=== PATIENT | female | born 1995 | race Two or more races ===

== ENCOUNTER 2024-04-12 08:57 | Inpatient (IN) | payer OTHER ==
[~2024-04-12] VITALS: Ht 157.5 cm; Wt 68.0 kg
[~2024-04-12 08:57] MED LIST: CYMBALTA30 MG PO; CYMBALTA60 MG PO
[2024-04-12] MEDS ORDERED: ONDANSETRON HCL 2 MG/ML VIAL IV STA (09:22)
[2024-04-12] MEDS ORDERED: ONDANSETRON HCL 2 MG/ML VIAL ONE (09:28)
[2024-04-12] MEDS ORDERED: MEPERIDINE HCL/PF 25 MG/ML VIAL IV ONE (09:30)
[2024-04-12] MEDS ORDERED: 0.9 % SODIUM CHLORIDE 1,000 ML IV SCH ×2 (09:30→22:00)
[2024-04-12] MEDS ORDERED: MORPHINE SULFATE 4 MG/ML CARTRIDGE IV ONE (09:30)
[2024-04-12] MEDS ORDERED: MORPHINE SULFATE 4 MG/ML CARTRIDGE IV STA ×2 (09:57→12:02)
[2024-04-12 10:16] LABS: HEMATOCRIT 41.7 % (36.0-45.00); HEMOGLOBIN 14.8 g/dL (12.0-15.00); MEAN CORPUSCULAR HEMOGLOBIN 31.2 pg (27.00-32.0); MEAN CORPUSCULAR HGB CONC 35.4 g/dl (32.0-36.0); PLATELET COUNT 290 K/uL (150-450); RED BLOOD COUNT 4.74 M/uL (4.00-6.00); RED CELL DISTRIBUTION WIDTH 13.2 % (11.5-14.5)
[2024-04-12 10:44] LABS: PH,URINE 6.5 (5.0-8.0); URINE APPEARANCE Cloudy; URINE BILIRRUBIN Negative (NEGATIVE); URINE BLOOD Trace; URINE COLOR Yellow; URINE GLUCOSE Negative (NEGATIVE); URINE KETONE 15 (NEGATIVE); URINE LEUKOCYTE Moderate; URINE NITRATE Negative; URINE PROTEIN Negative (NEGATIVE); URINE UROBILINOGEN 0.2 E.U./dl
[2024-04-12] MEDS ORDERED: CEFTRIAXONE SODIUM 1,000 MG VIAL IV ONE (10:45)
[2024-04-12 10:46] LABS: URINE BACTERIA 1310.8 uL (0.0-1933); URINE EPITHELIAL CELLS 66.6 uL (0.0-38.8); URINE RBC 13.8 uL (0.0-20.8); URINE WBC 287.4 uL (0.0-23.2)
[2024-04-12] MEDS ORDERED: CEFTRIAXONE SODIUM 1,000 MG VIAL ONE (10:47)
[2024-04-12 10:53] LABS: URINE CAST 0.14 uL (0.0-1.40)
[2024-04-12 11:43] LABS: ALBUMIN 3.8 gm/dL (3.4-5.0); BILIRUBIN TOTAL 1.01 mg/dL (0.3-1.2); CALCIUM 9.2 mg/dL (8.5-10.1); CREATININE SERUM 0.76 mg/dL (0.55-1.02); GFR 89.97; GLOBULINA 4.6 G/DL (2.4-3.5); POTASSIUM 3.74 mEq/L (3.5-5.1); TOTAL PROTEIN 8.4 gm/dL (6.4-8.2)
[2024-04-12] MEDS ORDERED: KETOROLAC TROMETHAMINE 60 MG VIAL IM ONE ×2 (17:00→17:52)
[2024-04-12] MEDS ORDERED: PIPERACILLIN/TAZOBACTAM SODIUM 3.375 GM VIAL IV ONE ×2 (17:00→17:52)
[2024-04-12] MEDS ORDERED: PHENAZOPYRIDINE HCL 100 MG TABLET PO SCH (17:00)
[2024-04-12] MEDS ORDERED: PHENAZOPYRIDINE HCL 100 MG TABLET PO ONE (17:51)
[2024-04-12 19:06] LABS: C-REACTIVE PROTEIN 3.52 MG/DL (0.00-0.29)
[2024-04-12] MEDS ORDERED: ACETAMINOPHEN 500 MG GEL..CAP PO PRN (22:15)
[2024-04-12] MEDS ORDERED: ONDANSETRON HCL 4 MG in 0.9 % SODIUM CHLORIDE 50 ML IV PRN (22:15)
[2024-04-12] MEDS ORDERED: MEPERIDINE HCL/PF 25 MG/ML VIAL IM PRN (22:15)
[2024-04-12] MEDS ORDERED: MEPERIDINE HCL/PF 25 MG/ML VIAL IM ONE (22:15)
[2024-04-13] MEDS ORDERED: PIPERACILLIN/TAZOBACTAM SODIUM 3.375 GM in DEXTROSE 5 % IN WATER 100 ML IV SCH
[2024-04-13 02:50] LABS: INR 1.05; PARTIAL THROMBOPLASTIN TIME 26.2 SECONDS (22.0-34.0); PROTHROMBIN TIME 11.4 SECONDS (9.0-11.5)
[2024-04-13 07:41] LABS: C-REACTIVE PROTEIN 4.1 MG/DL (0.00-0.29)
[2024-04-13 08:00] VITALS: BP 106/61
[2024-04-13] MEDS ORDERED: FAMOTIDINE/PF 20 MG in 0.9 % SODIUM CHLORIDE 8 ML IV PUSH SCH (09:00)
[2024-04-13] MEDS ORDERED: Duloxetine HCl 60 MG CAPSULE.DR PO SCH (09:00)
[2024-04-13] MEDS ORDERED: ENOXAPARIN SODIUM 40 MG/0.4 ML SYRINGE SUBCUTANEO SCH (09:00)
[2024-04-13] MEDS ORDERED: GABAPENTIN 300 MG CAPSULE PO SCH (09:00)
[2024-04-13] MEDS ORDERED: MORPHINE SULFATE 2 MG/ML CARTRIDGE IV PRN (11:30)
[2024-04-13 17:11] LABS: URINE APPEARANCE Clear; URINE BILIRRUBIN Small (NEGATIVE); URINE BLOOD Negative; URINE COLOR Orange; URINE GLUCOSE Negative (NEGATIVE); URINE LEUKOCYTE Small; URINE NITRATE Positive; URINE PROTEIN Trace (NEGATIVE)
[2024-04-13 17:12] LABS: URINE BACTERIA 7.3 uL (0.0-1933); URINE EPITHELIAL CELLS 11.8 uL (0.0-38.8); URINE RBC 3.9 uL (0.0-20.8)
[2024-04-13 17:14] LABS: URINE KETONE 40 (NEGATIVE)
[2024-04-13 17:15] LABS: URINE CAST 0.14 uL (0.0-1.40)
[2024-04-13 18:00] VITALS: BP 112/67
[2024-04-14 01:00] VITALS: BP 95/53
[2024-04-14 08:21] VITALS: BP 93/55
[2024-04-14 09:51] LABS: HEMATOCRIT 35.1 % (36.0-45.00); HEMOGLOBIN 11.9 g/dL (12.0-15.00); MEAN CELL VOLUME 90.1 fL (80.00-100.00); MEAN CORPUSCULAR HEMOGLOBIN 30.6 pg (27.00-32.0); PLATELET COUNT 236 K/uL (150-450); RED BLOOD COUNT 3.89 M/uL (4.00-6.00); RED CELL DISTRIBUTION WIDTH 13.4 % (11.5-14.5)
[2024-04-14 11:00] LABS: ALBUMIN 2.9 gm/dL (3.4-5.0); BILIRUBIN TOTAL 0.55 mg/dL (0.3-1.2); CALCIUM 8.3 mg/dL (8.5-10.1); CREATININE SERUM 0.57 mg/dL (0.55-1.02); GFR 125.4; GLOBULINA 3.4 G/DL (2.4-3.5); MAGNESIUM 1.8 mg/dL (1.8-2.4); PHOSPHOROUS 2.5 mg/dL (2.5-4.9); POTASSIUM 4.42 mEq/L (3.5-5.1); TOTAL PROTEIN 6.3 gm/dL (6.4-8.2)
[2024-04-14 11:06] LABS: C-REACTIVE PROTEIN 1.63 MG/DL (0.00-0.29)
[2024-04-14 13:00] VITALS: BP 100/58; O2SAT 99
[2024-04-14 17:48] VITALS: BP 105/63; O2SAT 100
[2024-04-15 02:51] VITALS: BP 109/57
[2024-04-15 09:25] VITALS: BP 102/61; O2SAT 100
[2024-04-15 09:48] LABS: CALCIUM 8.5 mg/dL (8.5-10.1); CREATININE SERUM 0.53 mg/dL (0.55-1.02); GFR 136.38; POTASSIUM 4.36 mEq/L (3.5-5.1)
[2024-04-15] MEDS ORDERED: DEXTROSE 5 % AND 0.9 % NACL 1,000 ML IV SCH (10:30)
[2024-04-15 17:48] VITALS: BP 119/69
[2024-04-15] MEDS ORDERED: POLYETHYLENE GLYCOL 3350 17 GM BLIST.PACK PO NR (19:00)
[2024-04-16 02:57] VITALS: BP 108/59
[2024-04-16 09:13] LABS: HEMATOCRIT 34.4 % (36.0-45.00); HEMOGLOBIN 12.1 g/dL (12.0-15.00); MEAN CELL VOLUME 88.2 fL (80.00-100.00); MEAN CORPUSCULAR HEMOGLOBIN 30.9 pg (27.00-32.0); MEAN CORPUSCULAR HGB CONC 35.1 g/dl (32.0-36.0); PLATELET COUNT 233 K/uL (150-450)
[2024-04-16] MEDS ORDERED: MORPHINE SULFATE 2 MG/ML CARTRIDGE IV PRN (09:45)
[2024-04-16 09:55] VITALS: BP 112/67; O2SAT 98
[2024-04-16] MEDS ORDERED: METHYLPREDNISOLONE SOD SUCC 40 MG VIAL ONE (12:44)
[2024-04-16] MEDS ORDERED: DIPHENHYDRAMINE HCL 50 MG/ML VIAL 1ML ONE (12:44)
[2024-04-16] MEDS ORDERED: DIPHENHYDRAMINE HCL 50 MG/ML VIAL 1ML IV NR (14:00)
[2024-04-16] MEDS ORDERED: METHYLPREDNISOLONE SOD SUCC 40 MG VIAL IV NR (14:00)
[2024-04-16 17:16] VITALS: BP 138/85
[2024-04-17 03:12] VITALS: BP 99/573
[2024-04-17 08:55] VITALS: BP 106/63
[2024-04-17] MEDS ORDERED: POLYETHYLENE GLYCOL 3350 17 GM BLIST.PACK PO SCH (09:00)
[2024-04-17] MEDS ORDERED: LACTULOSE 20 G/30 ML BLIST.PACK PO SCH (09:00)
[2024-04-17] MEDS ORDERED: MINERAL OIL 30 ML BLIST.PACK PO NR (09:15)
[2024-04-17] MEDS ORDERED: MAGNESIUM HYDROXIDE 30 ML BLIST.PACK PO NR (09:15)
[2024-04-17] MEDS ORDERED: NA PHOS,M-B/NA PHOS,DI-BA 1 BOTTLE ENEMA RECTAL STA (15:02)
[2024-04-17 17:56] VITALS: BP 115/65; O2SAT 100
[2024-04-17] MEDS ORDERED: MORPHINE SULFATE 4 MG/ML CARTRIDGE IV PRN (18:30)
[2024-04-18 03:48] VITALS: BP 110/58
[2024-04-18 05:35] LABS: HEMATOCRIT 34.9 % (36.0-45.00); MEAN CELL VOLUME 89.4 fL (80.00-100.00); MEAN CORPUSCULAR HEMOGLOBIN 30.8 pg (27.00-32.0); MEAN CORPUSCULAR HGB CONC 34.5 g/dl (32.0-36.0); PLATELET COUNT 261 K/uL (150-450)
[2024-04-18 05:54] LABS: ALBUMIN 2.8 gm/dL (3.4-5.0); BILIRUBIN TOTAL 0.83 mg/dL (0.3-1.2); CALCIUM 8.6 mg/dL (8.5-10.1); CREATININE SERUM 0.65 mg/dL (0.55-1.02); GFR 107.76; GLOBULINA 3.2 G/DL (2.4-3.5); POTASSIUM 4.32 mEq/L (3.5-5.1)
[2024-04-18 09:21] VITALS: BP 101/62
[2024-04-18] MEDS ORDERED: DEXTROSE 5 %-0.45 % SOD CHLORD 1,000 ML IV SCH (10:15)
[2024-04-18 18:38] LABS: T4 FREE 1.1 NG/ML (0.76-1.46); TSH 2.08 uIU/mL (0.358-3.74)
[2024-04-18 19:30] VITALS: BP 121/77; O2SAT 99
[2024-04-19 03:32] VITALS: BP 103/62
[2024-04-19 09:15] VITALS: BP 110/51; O2SAT 98
[2024-04-19 14:43] LABS: ALBUMIN 3.3 gm/dL (3.4-5.0); BILIRUBIN TOTAL 0.68 mg/dL (0.3-1.2); CALCIUM 9.1 mg/dL (8.5-10.1); CREATININE SERUM 0.58 mg/dL (0.55-1.02); GFR 122.91; POTASSIUM 3.37 mEq/L (3.5-5.1); TOTAL PROTEIN 7.3 gm/dL (6.4-8.2)
[2024-04-19 17:13] VITALS: BP 104/54
[2024-04-20 01:22] VITALS: BP 105/54
[2024-04-20 09:26] VITALS: BP 108/61; O2SAT 100
[2024-04-20] MEDS ORDERED: ACETAMINOPHEN 500 MG GEL..CAP PO PRN (09:30)
[2024-04-20 10:05] LABS: HEMATOCRIT 37.4 % (36.0-45.00); HEMOGLOBIN 12.8 g/dL (12.0-15.00); MEAN CELL VOLUME 88.4 fL (80.00-100.00); MEAN CORPUSCULAR HEMOGLOBIN 30.3 pg (27.00-32.0); MEAN CORPUSCULAR HGB CONC 34.3 g/dl (32.0-36.0); PLATELET COUNT 329 K/uL (150-450); RED BLOOD COUNT 4.23 M/uL (4.00-6.00); RED CELL DISTRIBUTION WIDTH 12.9 % (11.5-14.5)
[2024-04-20 10:34] LABS: INR 1.06; PARTIAL THROMBOPLASTIN TIME 26.2 SECONDS (22.0-34.0); PROTHROMBIN TIME 11.5 SECONDS (9.0-11.5)
[2024-04-20] MEDS ORDERED: MORPHINE SULFATE 2 MG/ML SYRINGE IV PRN (10:45)
[2024-04-20 10:52] LABS: ALBUMIN 3.5 gm/dL (3.4-5.0); BILIRUBIN TOTAL 0.71 mg/dL (0.3-1.2); CALCIUM 9.3 mg/dL (8.5-10.1); CREATININE SERUM 0.5 mg/dL (0.55-1.02); GFR 145.87; GLOBULINA 3.7 G/DL (2.4-3.5); POTASSIUM 3.56 mEq/L (3.5-5.1); TOTAL PROTEIN 7.2 gm/dL (6.4-8.2)
[2024-04-20 18:27] VITALS: BP 100/50
[2024-04-21 01:49] VITALS: BP 98/54
[2024-04-21 09:41] VITALS: BP 95/51
[2024-04-21] MEDS ORDERED: LIDOCAINE HCL 1%/EPINEPHRINE 20ML VIAL IJ ONE ×2 (14:44→15:00)
[2024-04-21] MEDS ORDERED: CEFTRIAXONE SODIUM 2,000 MG VIAL ONE (14:44)
[2024-04-21] MEDS ORDERED: METRONIDAZOLE/SODIUM CHLORIDE 500 MG/100 ML PIGGYBACK IV ONE ×2 (14:44→15:00)
[2024-04-21] MEDS ORDERED: CEFTRIAXONE SODIUM 2,000 MG VIAL IV ONE (15:00)
[2024-04-21] MEDS ORDERED: SUGAMMADEX SODIUM 200 MG/2 ML VIAL IV ONE ×2 (16:37→17:45)
[2024-04-21] MEDS ORDERED: ONDANSETRON HCL 2 MG/ML VIAL IV PRN (17:15)
[2024-04-21] MEDS ORDERED: MORPHINE SULFATE 4 MG/ML CARTRIDGE IV PRN (17:15)
[2024-04-21] MEDS ORDERED: OxyCODONE HCL 5 MG TABLET (ROXICODONE) PO PRN (17:15)
[2024-04-21] MEDS ORDERED: MORPHINE SULFATE 4 MG/ML VIAL IV ONE ×2 (17:35→18:05)
[2024-04-21] MEDS ORDERED: PIPERACILLIN/TAZOBACTAM SODIUM 3.375 GM in DEXTROSE 5 % IN WATER 100 ML IV SCH (18:00)
[2024-04-21] MEDS ORDERED: PIPERACILLIN/TAZOBACTAM SODIUM 3.375 GM VIAL IV ONE (18:57)
[2024-04-21] MEDS ORDERED: ACETAMINOPHEN 500 MG GEL..CAP PO SCH (20:00)
[2024-04-21] MEDS ORDERED: CELECOXIB 200 MG CAPSULE PO SCH (21:00)
[2024-04-21] MEDS ORDERED: SIMETHICONE 125 MG CAPSULE PO SCH (21:00)
[2024-04-21] MEDS ORDERED: FAMOTIDINE/PF 20 MG/2 ML VIAL IV PUSH SCH (21:00)
[2024-04-22] MEDS ORDERED: METOCLOPRAMIDE HCL 5 MG/ML VIAL IV SCH (01:00)
[2024-04-22 03:24] VITALS: BP 124/76
[2024-04-22 08:19] LABS: HEMATOCRIT 25.9 % (36.0-45.00); HEMOGLOBIN 9.2 g/dL (12.0-15.00); MEAN CELL VOLUME 87.8 fL (80.00-100.00); MEAN CORPUSCULAR HEMOGLOBIN 31.1 pg (27.00-32.0); MEAN CORPUSCULAR HGB CONC 35.3 g/dl (32.0-36.0); PLATELET COUNT 152 K/uL (150-450); RED BLOOD COUNT 2.95 M/uL (4.00-6.00); RED CELL DISTRIBUTION WIDTH 13.1 % (11.5-14.5)
[2024-04-22 08:33] LABS: CREATININE SERUM 0.36 mg/dL (0.55-1.02); GFR 213.11; PHOSPHOROUS 3.1 mg/dL (2.5-4.9); POTASSIUM 3.11 mEq/L (3.5-5.1)
[2024-04-22 08:38] LABS: CALCIUM 6.2 mg/dL (8.5-10.1); MAGNESIUM 1.1 mg/dL (1.8-2.4)
[2024-04-22] MEDS ORDERED: HYOSCYAMINE SULFATE 0.125 MG TAB.SUBL SL SCH (09:00)
[2024-04-22 09:02] VITALS: BP 93/45
[2024-04-22] MEDS ORDERED: DEXTROSE 5 % IN WATER 1,000 ML IV SCH (12:45)
[2024-04-22] MEDS ORDERED: MAGNESIUM SULFATE IN WATER 50 ML IV NR (13:00)
[2024-04-22] MEDS ORDERED: POTASSIUM BICARBONATE/CIT AC 25 MEQ TABLET.EFF PO SCH (13:00)
[2024-04-22] MEDS ORDERED: POLYETHYLENE GLYCOL 3350 17 GM BLIST.PACK PO SCH (17:00)
[2024-04-22] MEDS ORDERED: ENOXAPARIN SODIUM 40 MG/0.4 ML SYRINGE SUBCUTANEO SCH (17:00)
[2024-04-22 18:40] VITALS: BP 99/51
[2024-04-22 18:52] VITALS: BP 119/66
[2024-04-22] MEDS ORDERED: SIMETHICONE 125 MG CAPSULE PO SCH (21:34)
[2024-04-23 03:14] VITALS: BP 111/89; O2SAT 96
[2024-04-23] MEDS ORDERED: DEXTROSE 5%-WATER 100ML IV.SOLN ONE (05:03)
[2024-04-23 05:28] LABS: HEMATOCRIT 32.8 % (36.0-45.00); HEMOGLOBIN 11.4 g/dL (12.0-15.00); MEAN CELL VOLUME 88.4 fL (80.00-100.00); MEAN CORPUSCULAR HEMOGLOBIN 30.8 pg (27.00-32.0); MEAN CORPUSCULAR HGB CONC 34.9 g/dl (32.0-36.0); PLATELET COUNT 280 K/uL (150-450); RED BLOOD COUNT 3.72 M/uL (4.00-6.00)
[2024-04-23 05:50] LABS: CALCIUM 8.5 mg/dL (8.5-10.1); CREATININE SERUM 0.52 mg/dL (0.55-1.02); GFR 139.41; POTASSIUM 3.71 mEq/L (3.5-5.1)
[2024-04-23] MEDS ORDERED: ENOXAPARIN SODIUM 40 MG/0.4 ML SYRINGE SUBCUTANEO SCH (09:00)
[2024-04-23 09:25] VITALS: BP 91/48; O2SAT 97
== END 2024-04-23 15:54 | disposition home or self-care (01) | DRG 417 ==
LOC: ER 09:00 → MEDJ 22:06
PROVIDERS: Emergency Medicine; General Practice; Internal Medicine Infectious Disease; Student in an Organized Health Care Education/Training Program; Surgery; ADMIT Internal Medicine; ATTEND Internal Medicine
PROC: BW40ZZZ Ultrasonography of Abdomen (ICD-10-PCS; 2024-04-12)
PROC: BW21ZZZ Computerized Tomography (CT Scan) of Abdomen and Pelvis (ICD-10-PCS; 2024-04-12)
PROC: BW21YZZ Computerized Tomography (CT Scan) of Abdomen and Pelvis using Other Contrast (ICD-10-PCS; 2024-04-16)
PROC: CF1C1ZZ Planar Nuclear Medicine Imaging of Hepatobiliary System, All using Technetium 99m (Tc-99m) (ICD-10-PCS; 2024-04-17)
PROC: BF13YZZ Fluoroscopy of Gallbladder and Bile Ducts using Other Contrast (ICD-10-PCS; 2024-04-21)
PROC: 0FT44ZZ Resection of Gallbladder, Percutaneous Endoscopic Approach (ICD-10-PCS; principal; 2024-04-21 13:45)
DX: K81.1 Chronic cholecystitis (principal); K85.90 Acute pancreatitis without necrosis or infection, unspecified; N39.0 Urinary tract infection, site not specified; G89.29 Other chronic pain; G58.8 Other specified mononeuropathies

== ENCOUNTER 2024-06-06 08:18 | Inpatient (IN) | payer OTHER ==
[~2024-06-06] VITALS: Ht 157.5 cm; Wt 68.0 kg
[~2024-06-06 08:18] MED LIST changes: +METAXALONE800 MG PO
[2024-06-06] MEDS ORDERED: MORPHINE SULFATE 2 MG/ML SYRINGE IV ONE (09:45)
[2024-06-06] MEDS ORDERED: FAMOtidine 10 MG/ML (4ML VIAL) IV ONE (09:45)
[2024-06-06] MEDS ORDERED: ONDANSETRON HCL 2 MG/ML VIAL IV ONE (09:45)
[2024-06-06] MEDS ORDERED: ONDANSETRON HCL 2 MG/ML VIAL ONE ×2 (10:07)
[2024-06-06] MEDS ORDERED: FAMOTIDINE/PF 20 MG/2 ML VIAL ONE ×2 (10:07→21:50)
[2024-06-06 10:39] LABS: HEMATOCRIT 39.1 % (36.0-45.00); HEMOGLOBIN 13.4 g/dL (12.0-15.00); MEAN CELL VOLUME 92.3 fL (80.00-100.00); MEAN CORPUSCULAR HEMOGLOBIN 31.6 pg (27.00-32.0); MEAN CORPUSCULAR HGB CONC 34.2 g/dl (32.0-36.0); PLATELET COUNT 283 K/uL (150-450); RED BLOOD COUNT 4.24 M/uL (4.00-6.00)
[2024-06-06 11:12] LABS: PROTHROMBIN TIME 10.9 SECONDS (9.0-11.5)
[2024-06-06 11:20] LABS: ALBUMIN 3.9 gm/dL (3.4-5.0); ALKALINE PHOSPHATASE 159 U/L (50-136); ALT/SGPT 160 U/L (12-78); AMYLASE 44 U/L (25-115); ANION GAP 11 (10.0-20.0); AST/SGOT 327 U/L (15-37); BILIRUBIN TOTAL 0.87 mg/dL (0.3-1.2); BLOOD UREA NITROGEN 10 mg/dL (7-18); BUN CREA RATIO 16 (7.0-25.0); CALCIUM 9.2 mg/dL (8.5-10.1); CARBON DIOXIDE 24 mEq/L (21-32); CHLORIDE 108 mmol/L (98-107); CREATININE SERUM 0.62 mg/dL (0.55-1.02); GLUCOSE FASTING 87 mg/dL (65-100); LIPASE 17 U/L (13-75); OSMOLALITY SERUM 276 MOSM/KG (275-295); POTASSIUM 4.33 mEq/L (3.5-5.1); SODIUM 139 mmol/L (136-145); TOTAL PROTEIN 7.9 gm/dL (6.4-8.2)
[2024-06-06 11:44] LABS: HCG QUANTITATIVE < 1 mUI/mL (1-3)
[2024-06-06] MEDS ORDERED: MORPHINE SULFATE 4 MG/ML VIAL IV ONE (14:00)
[2024-06-06] MEDS ORDERED: TRAMADOL HCL E100 M1 PO (14:42)
[2024-06-06] MEDS ORDERED: MORPHINE SULFATE 2 MG/ML SYRINGE IV SCH (14:54)
[2024-06-06] MEDS ORDERED: METRONIDAZOLE/SODIUM CHLORIDE 100 ML IV SCH (19:40)
[2024-06-06] MEDS ORDERED: DIPHENHYDRAMINE HCL 50 MG/ML VIAL 1ML IV ONE (19:45)
[2024-06-06] MEDS ORDERED: METHYLPREDNISOLONE SOD SUCC 125 MG VIAL IV ONE (19:45)
[2024-06-06] MEDS ORDERED: 0.9 % SODIUM CHLORIDE 1,000 ML IV SCH (19:45)
[2024-06-06] MEDS ORDERED: METHYLPREDNISOLONE SOD SUCC 125 MG VIAL ONE (20:29)
[2024-06-06] MEDS ORDERED: DIPHENHYDRAMINE HCL 50 MG/ML VIAL 1ML ONE (20:29)
[2024-06-06] MEDS ORDERED: CIPROFLOXACIN IN 5 % DEXTROSE 200 ML IV SCH (21:00)
[2024-06-06] MEDS ORDERED: DICYCLOMINE HCL 20 MG TABLET PO SCH (21:00)
[2024-06-06] MEDS ORDERED: FAMOTIDINE/PF 20 MG in 0.9 % SODIUM CHLORIDE 8 ML IV PUSH SCH (21:00)
[2024-06-06] MEDS ORDERED: CIPROFLOXACIN IN 5 % DEXTROSE 400 MG/200 ML PIGGYBAG IV ONE (21:50)
[2024-06-06] MEDS ORDERED: METRONIDAZOLE/SODIUM CHLORIDE 500 MG/100 ML PIGGYBACK IV ONE (21:50)
[2024-06-06] MEDS ORDERED: DICYCLOMINE HCL 10 MG CAPSULE PO ONE (21:50)
[2024-06-06 22:23] LABS: ALBUMIN 3.2 gm/dL (3.4-5.0); CHOL HDL RATIO 2.7 (0-5.0)
[2024-06-06 22:42] VITALS: BP 100/55
[2024-06-06 23:01] LABS: PH,URINE 5.5 (5.0-8.0); URINE APPEARANCE Clear; URINE BILIRRUBIN Negative (NEGATIVE); URINE BLOOD Negative; URINE COLOR Yellow; URINE GLUCOSE Negative (NEGATIVE); URINE KETONE Negative (NEGATIVE); URINE LEUKOCYTE Trace; URINE NITRATE Negative; URINE PROTEIN Negative (NEGATIVE); URINE UROBILINOGEN 0.2 E.U./dl
[2024-06-06 23:05] LABS: URINE BACTERIA 518.9 uL (0.0-1933); URINE EPITHELIAL CELLS 6.9 uL (0.0-38.8); URINE RBC 3.9 uL (0.0-20.8); URINE WBC 43.8 uL (0.0-23.2)
[2024-06-07 00:24] VITALS: BP 91/53; O2SAT 98
[2024-06-07 05:30] VITALS: BP 102/50
[2024-06-07 08:19] VITALS: BP 105/64
[2024-06-07 18:13] VITALS: BP 92/60
[2024-06-08 01:57] VITALS: BP 112/69; O2SAT 98
[2024-06-08 07:06] LABS: HEPATITIS A IGM Negative (Negative); HEPATITIS B CORE IGG Negative (Negative); HEPATITIS B CORE IGM Negative (Negative); HEPATITIS C VIRUS ANTIBODY Non Reactive (Non Reactive)
[2024-06-08 09:04] VITALS: BP 95/57; O2SAT 99
[2024-06-08] MEDS ORDERED: MINERAL OIL 30 ML BLIST.PACK PO STA (10:18)
[2024-06-08] MEDS ORDERED: LACTULOSE 20 G/30 ML BLIST.PACK PO STA (10:19)
[2024-06-08] MEDS ORDERED: MAGNESIUM HYDROXIDE 30 ML BLIST.PACK PO STA (10:19)
[2024-06-08] MEDS ORDERED: POLYETHYLENE GLYCOL 3350 17 GM BLIST.PACK PO NR ×2 (11:00→17:00)
[2024-06-08 16:26] VITALS: BP 101/62; O2SAT 98
[2024-06-08] MEDS ORDERED: SENNA/DOCUSATE SODIUM 1 TAB TABLET PO SCH (17:00)
[2024-06-09] MEDS ORDERED: MORPHINE SULFATE 2 MG/ML SYRINGE IV PRN
[2024-06-09 02:23] VITALS: BP 84/50; O2SAT 99
[2024-06-09 07:57] VITALS: BP 86/50
[2024-06-09] MEDS ORDERED: POLYETHYLENE GLYCOL 3350 17 GM BLIST.PACK PO SCH (09:00)
[2024-06-09] MEDS ORDERED: ENOXAPARIN SODIUM 40 MG/0.4 ML SYRINGE SUBCUTANEO SCH (09:00)
[2024-06-09 10:52] LABS: ALBUMIN 3.1 gm/dL (3.4-5.0); BILIRUBIN TOTAL 0.51 mg/dL (0.3-1.2); CALCIUM 8.7 mg/dL (8.5-10.1); CREATININE SERUM 0.54 mg/dL (0.55-1.02); GFR 133.47; GLOBULINA 3.2 G/DL (2.4-3.5); POTASSIUM 3.91 mEq/L (3.5-5.1); TOTAL PROTEIN 6.3 gm/dL (6.4-8.2)
[2024-06-09] MEDS ORDERED: NA PHOS,M-B/NA PHOS,DI-BA 1 BOTTLE ENEMA RECTAL NR (13:30)
[2024-06-09 16:35] VITALS: BP 93/46; O2SAT 21
[2024-06-10 02:08] VITALS: BP 91/52; O2SAT 97
[2024-06-10 08:47] VITALS: BP 108/75; O2SAT 100
[2024-06-10] MEDS ORDERED: MIDAZOLAM HCL 2 MG/2 ML VIAL IV PUSH ONE (16:45)
[2024-06-10] MEDS ORDERED: fentaNYL CITRATE 50 MCG/ML AMPUL IV PUSH ONE (16:45)
[2024-06-10 17:28] VITALS: BP 111/70; O2SAT 100
[2024-06-10] MEDS ORDERED: FAMOtidine 20 MG TABLET PO SCH (21:00)
[2024-06-10 21:58] VITALS: BP 95/65; O2SAT 100
[2024-06-11 01:09] VITALS: BP 95/57; O2SAT 96
[2024-06-11 08:27] VITALS: BP 94/54; O2SAT 99
[2024-06-11 15:06] LABS: INFLUENZA A AG NEGATIVE (NEGATIVE)
[2024-06-11 15:13] LABS: COVID-19 AG NEGATIVE (NEGATIVE)
[2024-06-11 17:37] VITALS: BP 90/53; O2SAT 100
[2024-06-11 17:48] LABS: ALBUMIN 3.6 gm/dL (3.4-5.0); GLOBULINA 3.5 G/DL (2.4-3.5); TOTAL PROTEIN 7.1 gm/dL (6.4-8.2)
[2024-06-12 02:02] VITALS: BP 78/45; O2SAT 98
[2024-06-12 03:04] VITALS: BP 80/50
[2024-06-12 09:47] VITALS: BP 82/44; O2SAT 97
[2024-06-12 14:26] LABS: HEMATOCRIT 36.3 % (36.0-45.00); HEMOGLOBIN 12.6 g/dL (12.0-15.00); MEAN CELL VOLUME 90.8 fL (80.00-100.00); MEAN CORPUSCULAR HEMOGLOBIN 31.7 pg (27.00-32.0); MEAN CORPUSCULAR HGB CONC 34.8 g/dl (32.0-36.0); PLATELET COUNT 245 K/uL (150-450); RED BLOOD COUNT 3.99 M/uL (4.00-6.00)
[2024-06-12 14:54] LABS: ALBUMIN 3.2 gm/dL (3.4-5.0); BILIRUBIN TOTAL 0.36 mg/dL (0.3-1.2); CALCIUM 8.7 mg/dL (8.5-10.1); CREATININE SERUM 0.68 mg/dL (0.55-1.02); GFR 102.29; GLOBULINA 3.3 G/DL (2.4-3.5); POTASSIUM 3.68 mEq/L (3.5-5.1); TOTAL PROTEIN 6.5 gm/dL (6.4-8.2)
[2024-06-12] MEDS ORDERED: KETOROLAC TROMETHAMINE 30 MG VIAL IV SCH (17:00)
[2024-06-12 17:42] VITALS: BP 96/55; O2SAT 100
[2024-06-13 03:42] VITALS: BP 80/46; O2SAT 97
[2024-06-13 09:06] VITALS: BP 108/66; O2SAT 97
[2024-06-13 17:45] VITALS: BP 103/75; O2SAT 98
[2024-06-14 03:35] VITALS: BP 87/45; O2SAT 96
[2024-06-14 10:04] VITALS: BP 96/57; O2SAT 100
== END 2024-06-14 14:59 | disposition home or self-care (01) | DRG 358 ==
LOC: ER 08:19 → MEDJ 20:15
PROVIDERS: General Practice; Internal Medicine; ADMIT Student in an Organized Health Care Education/Training Program; ATTEND Student in an Organized Health Care Education/Training Program
PROC: BW21YZZ Computerized Tomography (CT Scan) of Abdomen and Pelvis using Other Contrast (ICD-10-PCS; 2024-06-06)
PROC: BW40ZZZ Ultrasonography of Abdomen (ICD-10-PCS; 2024-06-06)
PROC: CD271ZZ Tomographic (Tomo) Nuclear Medicine Imaging of Gastrointestinal Tract using Technetium 99m (Tc-99m) (ICD-10-PCS; 2024-06-07)
PROC: BW40ZZZ Ultrasonography of Abdomen (ICD-10-PCS; 2024-06-09)
PROC: BU4CZZZ Ultrasonography of Uterus and Ovaries (ICD-10-PCS; 2024-06-09)
PROC: 0W9F3ZX Drainage of Abdominal Wall, Percutaneous Approach, Diagnostic (ICD-10-PCS; principal; 2024-06-10)
DX: K59.09 Other constipation (principal); L72.8 Other follicular cysts of the skin and subcutaneous tissue; N83.291 Other ovarian cyst, right side; K57.30 Diverticulosis of large intestine without perforation or abscess without bleeding; R74.01 Elevation of levels of liver transaminase levels; R10.31 Right lower quadrant pain

== ENCOUNTER 2024-08-23 07:00 | Day surgery (SDC) | payer OTHER ==
[~2024-08-23 07:00] MED LIST changes: +TRAMADOL HCL E100 M1 PO
[2024-08-23] MEDS ORDERED: FLUMAZENIL 0.5 MG/5 ML ML IV STA (08:08)
[2024-08-23] MEDS ORDERED: NALOXONE HCL 0.4 MG/ML AMPUL IV STA (08:08)
[2024-08-23] MEDS ORDERED: fentaNYL CITRATE 50 MCG/ML AMPUL IV PUSH ONE (08:15)
[2024-08-23] MEDS ORDERED: MIDAZOLAM HCL 2 MG/2 ML VIAL IV ONE (08:15)
[2024-08-23] MEDS ORDERED: DIPHENHYDRAMINE HCL 50 MG/ML VIAL 1ML IV ONE (08:15)
== END 2024-08-23 09:05 | disposition home or self-care (01) ==
LOC: AMB-ENDOS 07:00
PROVIDERS: ATTEND Surgery
DX: K59.02 Outlet dysfunction constipation (principal); K58.9 Irritable bowel syndrome, unspecified; N80.34 Deep endometriosis of the pelvic sidewall; N80.312 Deep endometriosis of the anterior cul-de-sac; Z91.013 Allergy to seafood

== ENCOUNTER 2024-09-06 09:27 | Emergency (ER) | payer OTHER ==
[~2024-09-06] VITALS: Ht 157.5 cm; Wt 64.0 kg
[2024-09-06] MEDS ORDERED: METHYLPREDNISOLONE SOD SUCC 125 MG VIAL IV ONE (10:00)
[2024-09-06] MEDS ORDERED: KETOROLAC TROMETHAMINE 30 MG VIAL IV ONE ×2 (10:00→19:00)
[2024-09-06] MEDS ORDERED: DIPHENHYDRAMINE HCL 50 MG/ML VIAL 1ML IV ONE (10:00)
[2024-09-06] MEDS ORDERED: 0.9 % SODIUM CHLORIDE 1,000 ML IV ONE (10:00)
[2024-09-06] MEDS ORDERED: DESVENLAFAXINE50 M3 (10:21)
[2024-09-06] MEDS ORDERED: SPRINTEC 28 DA1 EAC1 (10:22)
[2024-09-06] MEDS ORDERED: METHYLPHENIDATE5 MG (10:22)
[2024-09-06] MEDS ORDERED: LISDEXAMFETAMIN50 MG (10:22)
[2024-09-06] MEDS ORDERED: RESTORIL15 MG (10:22)
[2024-09-06 11:07] LABS: URINE APPEARANCE Clear; URINE BILIRRUBIN Negative (NEGATIVE); URINE BLOOD Negative; URINE COLOR Yellow; URINE GLUCOSE Negative (NEGATIVE); URINE KETONE Negative (NEGATIVE); URINE LEUKOCYTE Moderate; URINE NITRATE Negative; URINE PROTEIN Negative (NEGATIVE); URINE UROBILINOGEN 0.2 E.U./dl
[2024-09-06 11:14] LABS: URINE BACTERIA 163.2 uL (0.0-1933); URINE EPITHELIAL CELLS 14.4 uL (0.0-38.8); URINE RBC 10.8 uL (0.0-20.8); URINE WBC 25.5 uL (0.0-23.2)
[2024-09-06 11:26] LABS: BASO % 0.6 % (0.1-1.2); EOS # 0.16 (0.04-0.54); EOS % 1.8 % (0.7-7.0); LYMPH # 1.80 (1.18-3.74); LYMPH % 20.2 % (19.3-53.1); MEAN PLATELET VOLUME 10.30 fl (9.4-12.4); MONO # 0.41 (0.24-0.82); MONO % 4.6 % (4.7-12.5); NEUT # 6.45 (1.56-6.13); NEUT % 72.5 % (34.0-71.1); RED CELL DISTRIBUTION WIDTH 12.5 % (11.6-14.4)
[2024-09-06 11:29] LABS: URINE CAST 0.00 uL (0.0-1.40)
[2024-09-06 12:49] LABS: INR 1.0
[2024-09-06 12:59] LABS: ALT/SGPT 105.0 U/L (12-78); AST/SGOT 173.0 U/L (15-37); BILIRUBIN TOTAL 0.72 mg/dL (0.3-1.2); BUN CREA RATIO 24.0 (7.0-25.0); CREATININE SERUM 0.62 mg/dL (0.55-1.02); GFR 113.8; GLOBULINA 3.4 G/DL (2.4-3.5); GLUCOSE FASTING 76.0 mg/dL (65-100); OSMOLALITY SERUM 275.0 MOSM/KG (275-295)
[2024-09-06] MEDS ORDERED: CEFTRIAXONE SODIUM 1,000 MG VIAL IV ONE (13:15)
[2024-09-06] MEDS ORDERED: MORPHINE SULFATE 4 MG/ML VIAL IV ONE (19:00)
[2024-09-06] MEDS ORDERED: ONDANSETRON HCL 2 MG/ML VIAL IV STA (20:06)
[2024-09-06] MEDS ORDERED: LACTULOSE 20 G/30 ML BLIST.PACK PO ONE (22:00)
[2024-09-06] MEDS ORDERED: MINERAL OIL 30 ML BLIST.PACK PO ONE (22:00)
[2024-09-06] MEDS ORDERED: MAGNESIUM HYDROXIDE 400 MG/5 ML ML PO ONE (22:00)
== END 2024-09-07 10:28 | disposition home or self-care (01) ==
LOC: ER 09:31
PROVIDERS: General Practice
DX: N83.291 Other ovarian cyst, right side (principal); N80.9 Endometriosis, unspecified; K59.00 Constipation, unspecified; Z91.013 Allergy to seafood

== ENCOUNTER 2024-09-29 10:53 | Inpatient (IN) | payer OTHER ==
[~2024-09-29] VITALS: Ht 157.5 cm; Wt 68.0 kg
[~2024-09-29 10:53] MED LIST changes: +DESVENLAFAXINE50 M3; +LISDEXAMFETAMIN50 MG; +METHYLPHENIDATE5 MG; +RESTORIL15 MG; +SPRINTEC 28 DA1 EAC1
[2024-09-29] MEDS ORDERED: PROAIR RESPICL90 MCG IH (14:52)
[2024-09-29] MEDS ORDERED: RESTORIL15 MG PO (14:52)
[2024-09-29] MEDS ORDERED: BUPROPION XL450 MG PO (14:53)
[2024-09-29] MEDS ORDERED: MAGNESIUM400 M1 PO (14:54)
[2024-10-06] MEDS ORDERED: CEFTRIAXONE SODIUM 2,000 MG VIAL ONE (12:28)
[2024-10-06] MEDS ORDERED: METRONIDAZOLE/SODIUM CHLORIDE 500 MG/100 ML PIGGYBACK IV ONE (12:29)
[2024-10-06] MEDS ORDERED: DIPHENHYDRAMINE HCL 50 MG/ML VIAL 1ML ONE ×2 (13:15→20:41)
[2024-10-06] MEDS ORDERED: BUPIVACAINE HCL/MPF 0.5% 30ML VIAL ONE (13:47)
[2024-10-06] MEDS ORDERED: LIDOCAINE HCL 1%/EPINEPHRINE 20ML VIAL IJ ONE (13:48)
[2024-10-06] MEDS ORDERED: HEPARIN SODIUM,PORCINE/PF 100 UNIT/ML SYRINGE IV ONE (14:29)
[2024-10-06] MEDS ORDERED: HYOSCYAMINE SULFATE 0.125 MG TAB.SUBL SL SCH (19:17)
[2024-10-06] MEDS ORDERED: LACTULOSE 20 G/30 ML BLIST.PACK PO SCH (19:18)
[2024-10-06] MEDS ORDERED: GABAPENTIN 300 MG CAPSULE PO SCH (19:18)
[2024-10-06] MEDS ORDERED: MORPHINE SULFATE 4 MG/ML VIAL IV ONE ×2 (19:25→21:35)
[2024-10-06] MEDS ORDERED: OxyCODONE HCL 5 MG TABLET (ROXICODONE) PO PRN (19:30)
[2024-10-06] MEDS ORDERED: ONDANSETRON HCL 2 MG/ML VIAL IV PRN (19:30)
[2024-10-06] MEDS ORDERED: MORPHINE SULFATE 4 MG/ML CARTRIDGE IV PRN (19:30)
[2024-10-06] MEDS ORDERED: DEXTROSE 50 % IN WATER 0.5 G/ML VIAL IV PRN (19:30)
[2024-10-06] MEDS ORDERED: ALBUTEROL SULFATE 3 ML/2.5 MG AMPUL.NEB IH SCH (19:54)
[2024-10-06] MEDS ORDERED: ACETAMINOPHEN 500 MG GEL..CAP PO SCH (20:00)
[2024-10-06] MEDS ORDERED: KETOROLAC TROMETHAMINE 30 MG VIAL ONE (20:30)
[2024-10-06] MEDS ORDERED: KETOROLAC TROMETHAMINE 30 MG VIAL IV ONE (20:40)
[2024-10-06] MEDS ORDERED: DIPHENHYDRAMINE HCL 50 MG/ML VIAL 1ML IV ONE ×5 (20:50→21:15)
[2024-10-06] MEDS ORDERED: FAMOTIDINE/PF 20 MG/2 ML VIAL IV PUSH SCH (21:00)
[2024-10-06 22:23] LABS: BASO % 0.2 % (0.1-1.2); EOS # 0.00 (0.04-0.54); EOS % 0.0 % (0.7-7.0); LYMPH # 0.43 (1.18-3.74); LYMPH % 2.9 % (19.3-53.1); MEAN PLATELET VOLUME 10.30 fl (9.4-12.4); MONO # 0.50 (0.24-0.82); MONO % 3.3 % (4.7-12.5); NEUT # 14.01 (1.56-6.13); NEUT % 93.2 % (34.0-71.1); RED CELL DISTRIBUTION WIDTH 13.4 % (11.6-14.4)
[2024-10-06 22:46] LABS: BUN CREA RATIO 14.0 (7.0-25.0); CREATININE SERUM 0.59 mg/dL (0.55-1.02); GFR 120.5; GLUCOSE FASTING 97.0 mg/dL (65-100); OSMOLALITY SERUM 278.0 MOSM/KG (275-295)
[2024-10-07 01:14] VITALS: BP 100/63; O2SAT 100
[2024-10-07 08:52] VITALS: BP 88/53; O2SAT 96
[2024-10-07] MEDS ORDERED: KETOROLAC TROMETHAMINE 30 MG VIAL IV SCH (09:00)
[2024-10-07 16:20] VITALS: BP 104/68; O2SAT 97
[2024-10-07] MEDS ORDERED: ENOXAPARIN SODIUM 40 MG/0.4 ML SYRINGE SUBCUTANEO SCH (17:00)
[2024-10-08] MEDS ORDERED: DIPHENHYDRAMINE HCL 50 MG/ML VIAL 1ML IV ONE (00:15)
[2024-10-08 02:22] VITALS: BP 102/64; O2SAT 99
[2024-10-08 08:00] VITALS: BP 104/70; O2SAT 99
[2024-10-08] MEDS ORDERED: ENOXAPARIN SODIUM 40 MG/0.4 ML SYRINGE SUBCUTANEO SCH (09:00)
[2024-10-08] MEDS ORDERED: DIPHENHYDRAMINE HCL 25 MG in 0.9 % SODIUM CHLORIDE 25 ML IV PRN (09:15)
[2024-10-08] MEDS ORDERED: MORPHINE SULFATE 4 MG/ML CARTRIDGE IV PRN (10:15)
[2024-10-08] MEDS ORDERED: CLONAZEPAM 1 MG TABLET PO STA (13:23)
[2024-10-08] MEDS ORDERED: CLONAZEPAM 0.5 MG TABLET PO PRN (13:30)
[2024-10-08 15:40] VITALS: BP 94/60; O2SAT 98
[2024-10-08 16:10] LABS: BASO % 0.5 % (0.1-1.2); EOS # 0.42 (0.04-0.54); EOS % 5.0 % (0.7-7.0); LYMPH # 2.03 (1.18-3.74); LYMPH % 24.3 % (19.3-53.1); MEAN PLATELET VOLUME 10.50 fl (9.4-12.4); MONO # 0.53 (0.24-0.82); MONO % 6.3 % (4.7-12.5); NEUT # 5.33 (1.56-6.13); NEUT % 63.8 % (34.0-71.1); RED CELL DISTRIBUTION WIDTH 13.7 % (11.6-14.4)
[2024-10-08 16:50] LABS: BUN CREA RATIO 6.0 (7.0-25.0); CREATININE SERUM 0.62 mg/dL (0.55-1.02); GFR 113.8; GLUCOSE FASTING 77.0 mg/dL (65-100); OSMOLALITY SERUM 281.0 MOSM/KG (275-295)
[2024-10-08 17:00] VITALS: BP 92/59
[2024-10-08] MEDS ORDERED: MAGNESIUM SULFATE IN WATER 50 ML IV NR (18:00)
[2024-10-08 20:00] VITALS: BP 83/50; O2SAT 98
[2024-10-08] MEDS ORDERED: POTASSIUM PHOS,M-BASIC-D-BASIC 3 MM/ML VIAL IV ONE (20:00)
[2024-10-08] MEDS ORDERED: TAMSULOSIN HCL 0.4 MG CAP PO SCH (21:00)
[2024-10-09 00:47] VITALS: BP 94/61; O2SAT 97
[2024-10-09] MEDS ORDERED: DIPHENHYDRAMINE HCL/ZINC ACET 28.3 GM CREAM.GM. TOP SCH (05:00)
[2024-10-09 08:00] VITALS: BP 98/66; O2SAT 99
[2024-10-09] MEDS ORDERED: POLYETHYLENE GLYCOL 3350 17 GM BLIST.PACK PO STA (13:18)
[2024-10-09 16:00] VITALS: BP 102/70; O2SAT 98
[2024-10-09] MEDS ORDERED: DIPHENHYDRAMINE HCL 25 MG in 0.9 % SODIUM CHLORIDE 25 ML IV SCH (18:00)
[2024-10-09] MEDS ORDERED: POLYETHYLENE GLYCOL 3350 17 GM BLIST.PACK PO SCH (21:00)
[2024-10-09] MEDS ORDERED: DIPHENHYDRAMINE HCL 50 MG/ML VIAL 1ML IV ONE (23:30)
[2024-10-09] MEDS ORDERED: DIPHENHYDRAMINE HCL 50 MG/ML VIAL 1ML ONE (23:47)
[2024-10-10 01:13] VITALS: BP 101/70; O2SAT 98
[2024-10-10 08:00] VITALS: BP 107/71; O2SAT 99
[2024-10-10] MEDS ORDERED: PRAMOXINE HCL/CALAMINE 180 ML BOTTLE TOP SCH (09:54)
[2024-10-10] MEDS ORDERED: ALBUTEROL SULFATE 3 ML/2.5 MG AMPUL.NEB IH SCH (13:00)
[2024-10-10 16:00] VITALS: BP 107/71; O2SAT 97
[2024-10-11 00:02] VITALS: BP 97/55; O2SAT 98
[2024-10-11 06:56] LABS: BASO % 0.4 % (0.1-1.2); EOS # 0.48 (0.04-0.54); EOS % 9.2 % (0.7-7.0); LYMPH # 1.44 (1.18-3.74); LYMPH % 27.6 % (19.3-53.1); MEAN PLATELET VOLUME 10.00 fl (9.4-12.4); MONO # 0.35 (0.24-0.82); MONO % 6.7 % (4.7-12.5); NEUT # 2.91 (1.56-6.13); NEUT % 55.9 % (34.0-71.1); RED CELL DISTRIBUTION WIDTH 13.6 % (11.6-14.4)
[2024-10-11 08:01] LABS: BUN CREA RATIO 9.0 (7.0-25.0); CREATININE SERUM 0.45 mg/dL (0.55-1.02); GFR 164.73; GLUCOSE FASTING 75.0 mg/dL (65-100); OSMOLALITY SERUM 279.0 MOSM/KG (275-295)
[2024-10-11 08:05] VITALS: BP 95/63; O2SAT 95
[2024-10-11] MEDS ORDERED: MAGNESIUM SULFATE IN WATER 50 ML IV NR (11:45)
[2024-10-11] MEDS ORDERED: HYOSCYAMINE SULFATE 0.125 MG TAB.SUBL SL PRN (12:49)
[2024-10-11] MEDS ORDERED: DIPHENHYDRAMINE HCL 50 MG/ML VIAL 1ML IV SCH (13:00)
[2024-10-11 16:00] VITALS: BP 99/66; O2SAT 97
[2024-10-12 01:01] VITALS: BP 113/72; O2SAT 100
[2024-10-12 08:00] VITALS: BP 114/77; O2SAT 98
[2024-10-12] MEDS ORDERED: 0.9 % SODIUM CHLORIDE 1,000 ML IV SCH (13:15)
[2024-10-12 14:55] LABS: URINE APPEARANCE Clear; URINE BACTERIA 994.5 uL (0.0-1933); URINE BILIRRUBIN Negative (NEGATIVE); URINE BLOOD Trace; URINE COLOR Yellow; URINE EPITHELIAL CELLS 12.1 uL (0.0-38.8); URINE GLUCOSE Negative (NEGATIVE); URINE KETONE 15 (NEGATIVE); URINE LEUKOCYTE Moderate; URINE NITRATE Negative; URINE PROTEIN Negative (NEGATIVE); URINE RBC 2.1 uL (0.0-20.8); URINE UROBILINOGEN 0.2 E.U./dl; URINE WBC 109.5 uL (0.0-23.2)
[2024-10-12 14:58] LABS: URINE CAST 0.14 uL (0.0-1.40)
[2024-10-12 16:00] VITALS: BP 100/69; O2SAT 100
[2024-10-12] MEDS ORDERED: LORATADINE 10 MG TABLET PO SCH (17:00)
[2024-10-13] MEDS ORDERED: MAGNESIUM HYDROXIDE 30 ML BLIST.PACK PO NR (09:00)
[2024-10-13 11:22] LABS: BASO % 0.4 % (0.1-1.2); EOS # 0.26 (0.04-0.54); EOS % 5.4 % (0.7-7.0); LYMPH # 0.86 (1.18-3.74); LYMPH % 17.7 % (19.3-53.1); MEAN PLATELET VOLUME 10.00 fl (9.4-12.4); MONO # 0.29 (0.24-0.82); MONO % 6.0 % (4.7-12.5); NEUT # 3.40 (1.56-6.13); NEUT % 70.1 % (34.0-71.1); RED CELL DISTRIBUTION WIDTH 13.2 % (11.6-14.4)
[2024-10-13 11:23] VITALS: BP 111/75; O2SAT 96
[2024-10-13] MEDS ORDERED: AMPICILLIN SODIUM/SULBACTAM NA 3,000 MG in 0.9 % SODIUM CHLORIDE 100 ML IV SCH (12:00)
[2024-10-13 13:00] LABS: BUN CREA RATIO 9.0 (7.0-25.0); CREATININE SERUM 0.54 mg/dL (0.55-1.02); GFR 133.47; GLUCOSE FASTING 124.0 mg/dL (65-100); OSMOLALITY SERUM 278.0 MOSM/KG (275-295)
[2024-10-13] MEDS ORDERED: LEVSIN/SL0.125 MG SL (16:32)
[2024-10-13] MEDS ORDERED: INTESTINEX680 M1 PO (16:32)
[2024-10-13] MEDS ORDERED: CELECOXIB200 MG PO (16:32)
[2024-10-13] MEDS ORDERED: NEURONTIN300 MG PO (16:33)
[2024-10-13 17:13] VITALS: BP 96/64; O2SAT 99
[2024-10-14 02:30] VITALS: BP 102/62; O2SAT 97
[2024-10-14 07:10] VITALS: BP 116/77; O2SAT 99
[2024-10-14] MEDS ORDERED: LACTULOSE 20 G/30 ML BLIST.PACK PO NR (09:45)
== END 2024-10-14 16:10 | DRG 742 ==
LOC: SURH 10-06 11:45 → SURG 10-06 12:02 → O/R 10-06 12:02 → SURH 10-06 13:00 → SURG 10-06 19:09
PROVIDERS: Internal Medicine Geriatric Medicine; Obstetrics & Gynecology Gynecology; ADMIT Surgery; ATTEND Surgery
PROC: 0DNW4ZZ Release Peritoneum, Percutaneous Endoscopic Approach (ICD-10-PCS; 2024-10-06)
PROC: 0DBP4ZZ Excision of Rectum, Percutaneous Endoscopic Approach (ICD-10-PCS; 2024-10-06)
PROC: 0DTN4ZZ Resection of Sigmoid Colon, Percutaneous Endoscopic Approach (ICD-10-PCS; 2024-10-06)
PROC: 0DJD8ZZ Inspection of Lower Intestinal Tract, Via Natural or Artificial Opening Endoscopic (ICD-10-PCS; 2024-10-06)
PROC: 0TN74ZZ Release Left Ureter, Percutaneous Endoscopic Approach (ICD-10-PCS; 2024-10-06)
PROC: 0UB04ZZ Excision of Right Ovary, Percutaneous Endoscopic Approach (ICD-10-PCS; principal; 2024-10-06 13:00)
PROC: 0TN64ZZ Release Right Ureter, Percutaneous Endoscopic Approach (ICD-10-PCS; 2024-10-06 13:00)
PROC: 3E0F7GC Introduction of Other Therapeutic Substance into Respiratory Tract, Via Natural or Artificial Opening (ICD-10-PCS; 2024-10-07)
PROC: 0T9B70Z Drainage of Bladder with Drainage Device, Via Natural or Artificial Opening (ICD-10-PCS; 2024-10-08)
DX: N80.34 Deep endometriosis of the pelvic sidewall (principal); K68.2 Retroperitoneal fibrosis; K56.50 Intestinal adhesions [bands], unspecified as to partial versus complete obstruction; N80.312 Deep endometriosis of the anterior cul-de-sac; K59.02 Outlet dysfunction constipation; N83.291 Other ovarian cyst, right side; N73.6 Female pelvic peritoneal adhesions (postinfective); K57.30 Diverticulosis of large intestine without perforation or abscess without bleeding; R10.2 Pelvic and perineal pain; R33.9 Retention of urine, unspecified; R42 Dizziness and giddiness; D64.89 Other specified anemias; K59.00 Constipation, unspecified; I95.1 Orthostatic hypotension; L23.1 Allergic contact dermatitis due to adhesives; J45.909 Unspecified asthma, uncomplicated

== ENCOUNTER 2024-12-30 15:36 | Emergency (ER) | payer OTHER ==
[~2024-12-30] VITALS: Ht 157.5 cm; Wt 68.0 kg
[~2024-12-30 15:36] MED LIST changes: +BUPROPION XL450 MG PO; +CELECOXIB200 MG PO; +INTESTINEX680 M1 PO; +LEVSIN/SL0.125 MG SL; +MAGNESIUM400 M1 PO; +NEURONTIN300 MG PO; +PROAIR RESPICL90 MCG IH; +RESTORIL15 MG PO
[2024-12-30] MEDS ORDERED: CONTRAVE ER 8-1 EACH (16:49)
[2024-12-30] MEDS ORDERED: KETOROLAC TROMETHAMINE 60 MG VIAL IM ONE (17:30)
[2024-12-30] MEDS ORDERED: DEXAMETHASONE 4 MG TABLET PO ONE (17:30)
[2024-12-30] MEDS ORDERED: TAMSULOSIN HCL 0.4 MG CAP PO ONE (17:30)
[2024-12-30 19:07] LABS: BASO % 0.7 % (0.1-1.2); EOS # 0.18 (0.04-0.54); EOS % 1.8 % (0.7-7.0); LYMPH # 4.17 (1.18-3.74); LYMPH % 42.7 % (19.3-53.1); MEAN PLATELET VOLUME 10.00 fl (9.4-12.4); MONO # 0.47 (0.24-0.82); MONO % 4.8 % (4.7-12.5); NEUT # 4.86 (1.56-6.13); NEUT % 49.8 % (34.0-71.1); RED CELL DISTRIBUTION WIDTH 12.4 % (11.6-14.4)
[2024-12-30 20:21] LABS: URINE APPEARANCE Clear; URINE BILIRRUBIN Negative (NEGATIVE); URINE BLOOD Negative; URINE COLOR Yellow; URINE GLUCOSE Negative (NEGATIVE); URINE KETONE Negative (NEGATIVE); URINE LEUKOCYTE Negative; URINE NITRATE Negative; URINE PROTEIN Negative (NEGATIVE); URINE UROBILINOGEN 0.2 E.U./dl
[2024-12-30 20:24] LABS: URINE BACTERIA 16.7 uL (0.0-1933); URINE EPITHELIAL CELLS 1.5 uL (0.0-38.8)
[2024-12-30] MEDS ORDERED: MORPHINE SULFATE 4 MG/ML CARTRIDGE IV ONE (20:30)
[2024-12-30 20:31] LABS: URINE CAST 0.00 uL (0.0-1.40); URINE RBC 1.6 uL (0.0-20.8); URINE WBC 1.3 uL (0.0-23.2)
[2024-12-30] MEDS ORDERED: METRONIDAZOLE/SODIUM CHLORIDE 500 MG/100 ML PIGGYBACK IV ONE (20:45)
[2024-12-30] MEDS ORDERED: CIPROFLOXACIN IN 5 % DEXTROSE 400 MG/200 ML PIGGYBAG IV ONE (20:45)
[2024-12-30] MEDS ORDERED: LACTOBACILLUS ACIDOPHILUS 1 CAP CAP PO ONE (20:45)
[2024-12-30 21:10] LABS: ALT/SGPT 71.0 U/L (12-78); AST/SGOT 25.0 U/L (15-37); BILIRUBIN TOTAL 0.46 mg/dL (0.3-1.2); BUN CREA RATIO 12.0 (7.0-25.0); CREATININE SERUM 0.84 mg/dL (0.55-1.02); GFR 79.61; GLOBULINA 4.2 G/DL (2.4-3.5); GLUCOSE FASTING 103.0 mg/dL (65-100); OSMOLALITY SERUM 282.0 MOSM/KG (275-295)
[2024-12-30] MEDS ORDERED: ACETAMINOPHEN WITH CODEINE 1 UDTAB TABLET PO ONE (23:45)
== END 2024-12-31 04:08 | disposition home or self-care (01) ==
LOC: ER 15:37
PROVIDERS: General Practice
DX: K59.00 Constipation, unspecified (principal); N20.0 Calculus of kidney; Z91.013 Allergy to seafood; Z91.048 Other nonmedicinal substance allergy status

== ENCOUNTER 2025-02-02 16:27 | Inpatient (IN) | payer OTHER ==
[~2025-02-02] VITALS: Ht 157.5 cm; Wt 62.6 kg
[~2025-02-02 16:27] MED LIST changes: +CONTRAVE ER 8-1 EACH; +NORFLEX100MG PO
[2025-02-02] MEDS ORDERED: 0.9 % SODIUM CHLORIDE 1,000 ML IV STA (16:50)
[2025-02-02] MEDS ORDERED: FAMOTIDINE/PF 20 MG/2 ML VIAL IV STA (16:50)
[2025-02-02] MEDS ORDERED: ONDANSETRON HCL 2 MG/ML VIAL IV STA (16:50)
[2025-02-02] MEDS ORDERED: ONDANSETRON HCL 2 MG/ML VIAL ONE (16:57)
[2025-02-02] MEDS ORDERED: DIPHENHYDRAMINE HCL 50 MG/ML VIAL 1ML ONE (16:57)
[2025-02-02] MEDS ORDERED: FAMOTIDINE/PF 20 MG/2 ML VIAL ONE (16:58)
[2025-02-02] MEDS ORDERED: METHYLPREDNISOLONE SOD SUCC 125 MG VIAL ONE (16:58)
[2025-02-02] MEDS ORDERED: PIPERACILLIN/TAZOBACTAM SODIUM 3.375 GM VIAL IV ONE ×2 (16:58→17:00)
[2025-02-02] MEDS ORDERED: DIPHENHYDRAMINE HCL 50 MG/ML VIAL 1ML IM ONE (17:00)
[2025-02-02] MEDS ORDERED: METHYLPREDNISOLONE SOD SUCC 125 MG VIAL IV ONE (17:00)
[2025-02-02] MEDS ORDERED: WATER FOR INJ.,BACTERIOSTATIC 30 ML VIAL IJ ONE (17:01)
[2025-02-02] MEDS ORDERED: DIATRIZOATE MEGLUMINE, SODIUM 30 ML BOTTLE ONE (17:08)
[2025-02-02 17:27] LABS: BASO % 0.4 % (0.1-1.2); EOS # 0.08 (0.04-0.54); EOS % 0.9 % (0.7-7.0); LYMPH # 2.00 (1.18-3.74); LYMPH % 21.9 % (19.3-53.1); MEAN PLATELET VOLUME 10.00 fl (9.4-12.4); MONO # 0.37 (0.24-0.82); MONO % 4.1 % (4.7-12.5); NEUT # 6.61 (1.56-6.13); NEUT % 72.5 % (34.0-71.1); RED CELL DISTRIBUTION WIDTH 12.2 % (11.6-14.4)
[2025-02-02 17:56] LABS: INR 1.06
[2025-02-02 17:57] LABS: URINE APPEARANCE Cloudy; URINE BILIRRUBIN Negative (NEGATIVE); URINE BLOOD Trace; URINE COLOR Yellow; URINE GLUCOSE Negative (NEGATIVE); URINE KETONE 15 (NEGATIVE); URINE LEUKOCYTE Large; URINE NITRATE Positive; URINE PROTEIN Negative (NEGATIVE); URINE UROBILINOGEN 0.2 E.U./dl
[2025-02-02 18:01] LABS: URINE EPITHELIAL CELLS 16.4 uL (0.0-38.8); URINE RBC 7.7 uL (0.0-20.8); URINE WBC 1269.7 uL (0.0-23.2)
[2025-02-02 18:02] LABS: ERYTHROCYTE SEDIMENTATION RATE 11 mm/hr (0-20)
[2025-02-02 18:05] LABS: ALT/SGPT 64.0 U/L (12-78); AST/SGOT 67.0 U/L (15-37); BILIRUBIN TOTAL 0.52 mg/dL (0.3-1.2); BILIRUBIN,CONJUGATED 0.11 mg/dL (0.0-0.2); BUN CREA RATIO 18.0 (7.0-25.0); CREATININE SERUM 0.92 mg/dL (0.55-1.02); GFR 71.68; GLUCOSE FASTING 89.0 mg/dL (65-100); OSMOLALITY SERUM 280.0 MOSM/KG (275-295)
[2025-02-02 18:17] LABS: URINE BACTERIA > 9821.5 uL (0.0-1933); URINE CAST 0.70 uL (0.0-1.40)
[2025-02-02] MEDS ORDERED: CEFTRIAXONE SODIUM 2,000 MG in 0.9 % SODIUM CHLORIDE 100 ML IV SCH (20:38)
[2025-02-02] MEDS ORDERED: FAMOTIDINE/PF 20 MG in 0.9 % SODIUM CHLORIDE 100 ML IV SCH (20:38)
[2025-02-02] MEDS ORDERED: MORPHINE SULFATE 2 MG/ML SYRINGE IV PRN (20:45)
[2025-02-02] MEDS ORDERED: ONDANSETRON HCL 4 MG in 0.9 % SODIUM CHLORIDE 50 ML IV PRN (20:45)
[2025-02-02] MEDS ORDERED: 0.9 % SODIUM CHLORIDE 1,000 ML IV SCH (20:45)
[2025-02-03] MEDS ORDERED: FAMOTIDINE/PF 20 MG/2 ML VIAL ONE (03:29)
[2025-02-03] MEDS ORDERED: CEFTRIAXONE SODIUM 2,000 MG VIAL ONE (03:44)
[2025-02-03] MEDS ORDERED: POLYETHYLENE GLYCOL 3350 17 GM BLIST.PACK PO SCH (09:16)
[2025-02-03 09:45] VITALS: BP 115/78; O2SAT 99
[2025-02-03] MEDS ORDERED: MINERAL OIL 30 ML BLIST.PACK PO STA (09:56)
[2025-02-03] MEDS ORDERED: LACTULOSE 20 G/30 ML BLIST.PACK PO STA (09:56)
[2025-02-03] MEDS ORDERED: MAG HYDROX/ALUMINUM HYD/SIMETH 30 ML BLIST.PACK PO STA (09:56)
[2025-02-03] MEDS ORDERED: KETOROLAC TROMETHAMINE 30 MG VIAL IV PRN (10:45)
[2025-02-03] MEDS ORDERED: NA PHOS,M-B/NA PHOS,DI-BA 1 BOTTLE ENEMA RECTAL NR (10:45)
[2025-02-03 17:07] VITALS: BP 107/70; O2SAT 98
[2025-02-04 03:08] VITALS: BP 91/47; O2SAT 98
[2025-02-04 06:21] LABS: BASO % 0.4 % (0.1-1.2); EOS # 0.10 (0.04-0.54); EOS % 1.3 % (0.7-7.0); LYMPH # 2.87 (1.18-3.74); LYMPH % 36.9 % (19.3-53.1); MEAN PLATELET VOLUME 10.90 fl (9.4-12.4); MONO # 0.46 (0.24-0.82); MONO % 5.9 % (4.7-12.5); NEUT # 4.30 (1.56-6.13); NEUT % 55.2 % (34.0-71.1); RED CELL DISTRIBUTION WIDTH 12.6 % (11.6-14.4)
[2025-02-04 06:36] LABS: BUN CREA RATIO 45.0 (7.0-25.0); CREATININE SERUM 0.58 mg/dL (0.55-1.02); GFR 122.06; GLUCOSE FASTING 78.0 mg/dL (65-100); OSMOLALITY SERUM 289.0 MOSM/KG (275-295)
[2025-02-04 09:41] VITALS: BP 95/61; O2SAT 97
[2025-02-04 18:11] VITALS: BP 96/61; O2SAT 100
[2025-02-05 01:49] VITALS: BP 96/59; O2SAT 99
[2025-02-05 08:17] VITALS: BP 96/64; O2SAT 99
[2025-02-05] MEDS ORDERED: MAGNESIUM HYDROXIDE 400 MG/5 ML ML PO ONE (10:00)
[2025-02-05] MEDS ORDERED: LACTULOSE 20 G/30 ML BLIST.PACK PO ONE (10:00)
[2025-02-05 18:20] VITALS: BP 100/68
[2025-02-06 01:47] VITALS: BP 96/56; O2SAT 99
[2025-02-06 07:54] LABS: BASO % 0.2 % (0.1-1.2); EOS # 0.02 (0.04-0.54); EOS % 0.2 % (0.7-7.0); LYMPH # 1.46 (1.18-3.74); LYMPH % 13.7 % (19.3-53.1); MEAN PLATELET VOLUME 11.60 fl (9.4-12.4); MONO # 1.98 (0.24-0.82); NEUT # 6.68 (1.56-6.13); NEUT % 63.0 % (34.0-71.1)
[2025-02-06 07:57] LABS: URINE APPEARANCE Clear; URINE BILIRRUBIN Negative (NEGATIVE); URINE BLOOD Negative; URINE COLOR Yellow; URINE GLUCOSE Negative (NEGATIVE); URINE KETONE Negative (NEGATIVE); URINE LEUKOCYTE Negative; URINE NITRATE Negative; URINE PROTEIN Negative (NEGATIVE); URINE UROBILINOGEN 0.2 E.U./dl
[2025-02-06 08:00] LABS: URINE BACTERIA 57.1 uL (0.0-1933); URINE EPITHELIAL CELLS 7.2 uL (0.0-38.8); URINE RBC 2.6 uL (0.0-20.8); URINE WBC 19.1 uL (0.0-23.2)
[2025-02-06 08:08] LABS: URINE CAST 0.14 uL (0.0-1.40)
[2025-02-06] MEDS ORDERED: CEFTRIAXONE SODIUM 2,000 MG VIAL ONE (08:56)
[2025-02-06 09:22] LABS: MONO % 18.6 % (4.7-12.5); RED CELL DISTRIBUTION WIDTH 17.8 % (11.6-14.4)
[2025-02-06 09:23] LABS: BAND MAN 4.0 %; BASOPHIL MAN 1.0 %; LYMPHOCYTE MAN 15.0 %; MONOCYTE MAN 13.0 %; NEUTROPHILS MAN 65.0 %
[2025-02-06 09:28] VITALS: BP 112/64; O2SAT 95
[2025-02-06 18:07] VITALS: BP 103/66
[2025-02-07 02:59] VITALS: BP 101/65; O2SAT 100
[2025-02-07 09:13] VITALS: BP 123/60; O2SAT 95
[2025-02-07] MEDS ORDERED: DIPHENHYDRAMINE HCL 50 MG/ML VIAL 1ML IV SCH (11:15)
[2025-02-07 18:22] VITALS: BP 104/69
[2025-02-08 02:55] VITALS: BP 90/52; O2SAT 97
[2025-02-08 09:28] VITALS: BP 111/68; O2SAT 100
[2025-02-08 12:07] LABS: BASO % 0.5 % (0.1-1.2); EOS # 0.25 (0.04-0.54); EOS % 4.1 % (0.7-7.0); LYMPH # 2.19 (1.18-3.74); LYMPH % 35.7 % (19.3-53.1); MEAN PLATELET VOLUME 10.70 fl (9.4-12.4); MONO # 0.41 (0.24-0.82); MONO % 6.7 % (4.7-12.5); NEUT # 3.25 (1.56-6.13); NEUT % 52.8 % (34.0-71.1); RED CELL DISTRIBUTION WIDTH 12.6 % (11.6-14.4)
== END 2025-02-08 14:49 | disposition home or self-care (01) | DRG 690 ==
LOC: ER 16:27 → SEC-K 21:07 → MEDI 21:07
PROVIDERS: General Practice; Internal Medicine; Internal Medicine Infectious Disease; ADMIT Student in an Organized Health Care Education/Training Program; ATTEND Student in an Organized Health Care Education/Training Program
PROC: BW21ZZZ Computerized Tomography (CT Scan) of Abdomen and Pelvis (ICD-10-PCS; principal; 2025-02-02)
PROC: 30233N1 Transfusion of Nonautologous Red Blood Cells into Peripheral Vein, Percutaneous Approach (ICD-10-PCS; 2025-02-07)
DX: N39.0 Urinary tract infection, site not specified (principal); N30.10 Interstitial cystitis (chronic) without hematuria; K31.84 Gastroparesis; Z79.4 Long term (current) use of insulin; E11.9 Type 2 diabetes mellitus without complications; J45.20 Mild intermittent asthma, uncomplicated; D64.9 Anemia, unspecified; G58.8 Other specified mononeuropathies; N83.00 Follicular cyst of ovary, unspecified side; Q50.1 Developmental ovarian cyst; G62.9 Polyneuropathy, unspecified; F41.9 Anxiety disorder, unspecified; F90.9 Attention-deficit hyperactivity disorder, unspecified type